=== PATIENT | female | born 1960 | race Caucasian/White ===

== ENCOUNTER 2019-04-16 09:25 | Emergency (ER) | payer OTHER ==
[~2019-04-16] VITALS: Ht 167.6 cm; Wt 58.0 kg
[2019-04-16 09:29] VITALS: BP 132/86; PULSE 96; RESP 18; Ht 167.6 cm; Wt 58.0 kg
[2019-04-16] MEDS ORDERED: IBUPROFEN 600 MG TAB PO ONE (10:00)
[2019-04-16] MEDS ORDERED: IBUP-1542 PO (12:45)
--- NOTE | 2019-04-21 06:12 | ERD ---
ER Documentation Chief Complaint Chief Complaint RT ANKLE /KNEE PAIN S/P TRIP AND FALL YESTERDAY HPI 58-year-old female patient with a past medical history of hypothyroidism, diabetes presents to the ED because she injured her right ankle, tellez, foot after having a mechanical fall [employer]. States that it was slippery, and twisted her leg. Rates her pain an 8 out of 10. Describes her pain is achy. Denies any head or neck injuries. Denies taking any blood thinners. Denies any fever, chills, sensation loss of range of motion. States it is gotten more swollen, and increasing redness. ROS All systems reviewed and are negative except as per history of present illness. Medications Home Meds Active Scripts Ibuprofen* (Motrin*) 600 Mg Tab, 600 MG PO Q6, #30 TAB take with food Prov:STANFORD LR PA-C 04/16/19 Allergies Allergies: Coded Allergies: Sulfa (Sulfonamide Antibiotics) (Verified Allergy, Unknown, rash,abdominal pain,vomiting, 04/16/19) PMhx/Soc History of Surgery: Yes (Appendectomy) Anesthesia Reaction: No Hx Miscellaneous Medical Probl: Yes (DM, Hypothyroid) Hx Alcohol Use: No Hx Substance Use: No Hx Tobacco Use: No Smoking Status: Never smoker FmHx Family History: No diabetes, No coronary disease Physical Exam Vitals Temperature 98.1 Pulse 96 Systolic blood pressure 132 Diastolic blood pressure 86 Respiratory rate 18 O2 sat 99 Pain intensity 8 Physical Exam Const: [id number], well-nourished. In no acute distress. Head: Atraumatic, normocephalic Eyes: Normal Conjunctiva without injection ENT: Normal external ear, nose and mouth. Neck: Full range of motion. No meningismus. Resp: Clear to auscultation bilaterally. No wheezing, rhonchi, rales, or crackles. No accessory muscle use. No retractions. Cardio: Regular rate and rhythm, no murmurs Skin: No petechiae or rashes Back: No midline tenderness. No CVA tenderness. Ext: No cyanosis, or edema. Cap refill less than 2 seconds. Distal pulses intact bilaterally. Neur: Awake and alert. Normal gait and coordination. Muscle strength 5/5. Sensation intact bilaterally. Psych: Normal Mood and Affect Results 24 hrs Current Medications Medications Dose Sig/Cj Start Time Status Last (Trade) Ordered Route PRN Stop Time Admin Dose Reason Admin Ibuprofen 600 mg ONCE ONCE 04/16/19 DC 04/16/19 (Motrin) PO 10:00 10:10 04/16/19 10:03 Procedures/MDM This is a 58-year-old female patient with a past medical history of diabetes, hypothyroidism presents to the ED with injuries to her right ankle, tellez, foot. Patient is afebrile and nontoxic-appearing. A right tib-fib, ankle, foot x-ray was ordered to further evaluate patient. Patient was given ibuprofen 600 mg here in the ED with improvement of her pain. IMPRESSION: Medial and lateral malleolar fractures as noted on current ankle radiographs. No additional fracture or evidence of dislocation about the knee. IMPRESSION: Diffuse soft tissue swelling with mildly displaced medial and lateral malleolar fractures. The ankle mortise is slightly wider medially than laterally. IMPRESSION: Soft tissue swelling about the ankle with underlying distal tibial and fibular fractures. Correlate with ankle radiographic findings. No acute fracture or dislocation is seen involving the right foot. Patient is placed in a posterior ankle splint. Crutches were given to patient to help with ambulation. Splint Assessment: Neurovascularly intact pre and post splint placement with good fit. Discussed patient's findings on x-ray especially since the ankle mortis is widened with Dr. Goode, stated that patient can be managed on outpatient basis and placed in a posterior ankle splint.Patient's extremity symptoms have stabilized while they have been evaluated in the department and are appropriate for outpatient follow up. No evidence of fractures, dislocations, compartment syndrome, neurologic injury, vascular injury, open joint, open fracture, tendon laceration, septic arthritis, osteomyelitis, DVT, foreign body, or other emergent conditions. Diagnosis: Closed right ankle fracture Discharge medications: Ibuprofen Follow up with primary care physician in 1-2 days. Instructed patient to return to the ED sooner for any worsening symptoms. Patient's questions were answered. Patient is hemodynamically stable. Patient understood and agreed with discharge plan. Patient discharged stable. Disclaimer: Inadvertent spelling and grammatical errors are likely due to EHR/dictation software use and do not reflect on the overall quality of patient care. Also, please note that the electronic time recorded on this note does not necessarily reflect the actual time of the patient encounter. Departure Diagnosis: Primary Impression: Closed right ankle fracture Encounter type: initial encounter Qualified Codes: S82.891A - Other fracture of right lower leg, initial encounter for closed fracture Condition: Stable Patient Instructions: Ankle Fracture (Distal Fibula), Closed Referrals: SAMEERA GOODE [facility] YOU HAVE RECEIVED A MEDICAL SCREENING EXAM AND THE RESULTS INDICATE THAT YOU DO NOT HAVE A CONDITION THAT REQUIRES URGENT TREATMENT IN THE EMERGENCY DEPARTMENT. FURTHER EVALUATION AND TREATMENT OF YOUR CONDITION CAN WAIT UNTIL YOU ARE SEEN IN YOUR DOCTORS OFFICE WITHIN THE NEXT 1-2 DAYS. IT IS YOUR RESPONSIBILITY TO MAKE AN APPOINTMENT FOR FOLOW-UP CARE. IF YOU HAVE A PRIMARY DOCTOR --you should call your primary doctor and schedule an appointment IF YOU DO NOT HAVE A PRIMARY DOCTOR YOU CAN CALL OUR PHYSICIAN REFERRAL HOTLINE AT IF YOU CAN NOT AFFORD TO SEE A PHYSICIAN YOU CAN CHOSE FROM THE FOLLOWING [facility] [address] [facility] [address] [facility] [address] [facility] [facility] [facility] [facility] [address] [facility] [address] [facility] [address] [facility] [address] [facility]. [facility]. [address] [facility]. [facility] YOU HAVE RECEIVED A MEDICAL SCREENING EXAM AND THE RESULTS INDICATE THAT YOU DO NOT HAVE A CONDITION THAT REQUIRES URGENT TREATMENT IN THE EMERGENCY DEPARTMENT. FURTHER EVALUATION AND TREATMENT OF YOUR CONDITION CAN WAIT UNTIL YOU ARE SEEN IN YOUR DOCTORS OFFICE WITHIN THE NEXT 1-2 DAYS. IT IS YOUR RESPONSIBILITY TO MAKE AN APPOINTMENT FOR FOLOW-UP CARE. IF YOU HAVE A PRIMARY DOCTOR --you should call your primary doctor and schedule and appointment IF YOU DO NOT HAVE A PRIMARY DOCTOR YOU CAN CALL OUR PHYSICIAN REFERRAL HOTLINE AT . IF YOU CAN NOT AFFORD TO SEE A PHYSICIAN YOU CAN CHOSE FROM THE FOLLOWING [facility] INSTITUTIONS: [facility] [address] [place] [address] [facility] [address] [place] [address] [facility] [address] [address] [facility] URGENT CARE/SPECIALTIES Additional Instructions: Call your primary care doctor TOMORROW for appointment during the next 1-2 days for a referral to see an orthopedic physician for further evaluation and treatment.See the doctor sooner or return here if your condition worsens before your appointment time. STANFORD LR PA-C April 21, 2019 06:12
== END 2019-04-16 13:06 | disposition home or self-care (01) ==
LOC: FTE 09:25
DX: S82.51XA Displaced fracture of medial malleolus of right tibia, initial encounter for closed fracture (principal); S82.61XA Displaced fracture of lateral malleolus of right fibula, initial encounter for closed fracture; E11.9 Type 2 diabetes mellitus without complications; E03.9 Hypothyroidism, unspecified; W01.0XXA Fall on same level from slipping, tripping and stumbling without subsequent striking against object, initial encounter; Y92.9 Unspecified place or not applicable
CPT/HCPCS: 29515; 73590; 73610; 73630; Z7610